=== PATIENT | male | born 1950 | race Caucasian/White ===

== ENCOUNTER 2021-11-30 15:34 | Emergency (ER) | payer MEDICARE, SELFPAY ==
--- NOTE | 2021-11-30 15:45 | ED.URI ---
HPI - URI/Sore Throat General Chief Complaint: Upper Respiratory Infection Stated Complaint: Congestion, ear pain, sore throat, cough Time Seen by Provider: 11/30/21 15:45 Source: patient and RN notes reviewed History of Present Illness HPI Narrative: Patient is 71-year-old male who presents the urgent care with complaints of congestion, rhinorrhea, bilateral ear pain and postnasal drainage. Patient states that he has been taking Benadryl the last 3 nights and it seemed to really help with his symptoms . Patient denies of any fevers, nausea, vomiting, shortness of breath or chest pain. Patient states his symptoms started last Saturday and seems to be getting better however his wanted him evaluated. Patient denies of any ill contacts. No other acute complaints. No acute distress noted. Patient aware of the plan of care. Some parts of this dictation were generated by voice recognition software and may contain typographical and/or grammatical inaccuracies. Related Data Home Medications Medication Instructions Recorded Confirmed amlodipine 11/30/21 benazepril 11/30/21 clopidogrel 11/30/21 metoprolol succinate PO 11/30/21 Allergies Allergy/AdvReac Type Severity Reaction Status Date / Time Sulfa (Sulfonamide Allergy Unknown Hives Unverified 11/30/21 15:45 Antibiotics) Review of Systems Review of Systems: CONSTITUTIONAL: Denies fever, chills, or sweats. EYES: Denies visual changes, redness, or discharge. ENT: Reports of sinus congestion, postnasal drainage, rhinorrhea and bilateral otalgia CARDIOVASCULAR: Denies chest pain, palpitations, or edema. RESPIRATORY: Reports of dry cough without dyspnea GASTROINTESTINAL: Denies abdominal pain, nausea, vomiting, or diarrhea. GENITOURINARY: Denies dysuria or hematuria. SKIN: Denies rash or itching. MUSCULOSKELETAL: Denies back pain, joint pain, or myalgia. NEUROLOGIC: Denies headache, numbness, or weakness. All other systems reviewed are negative, except as documented in HPI. PMFSH Comments At the time of my signature, I reviewed and agree with the nursing past medical, surgical, social, and family history. There is no relevant family history pertinent to the patient complaint. Exam Narrative: GENERAL: This is a well-nourished, well-developed patient, in no apparent distress. HEAD: normocephalic, atraumatic. EYES: PERRL. Sclera clear/white. Vision is grossly intact. Mild bilateral subconjunctival hematoma with mild injected conjunctiva EARS: External ears normal, auditory canals clear and without drainage, TMs normal without perforation. Hearing grossly intact. NOSE: External nose normal with no obvious nasal discharge, nares without redness, clear rhinorrhea. THROAT: Mucous membranes moist, mild erythema to the posterior oropharynx with moderate postnasal drainage NECK: Neck supple CARDIOVASCULAR: Regular rate and rhythm without murmurs, gallops, or rubs. RESPIRATORY: Clear to auscultation. Breath sounds equal bilaterally. No wheezes, rales, or rhonchi. SKIN: warm, intact with no suspicious lesions or rash, good texture and turgor. NEURO: awake, alert, and oriented to person, place and time. There were no obvious focal neurologic abnormalities. EXTREMITIES: No clubbing, cyanosis, or edema. Course Course Level of Care: Express Care Visit Vital Signs Vital signs: Vital Signs Temperature 98.2 F 11/30/21 15:47 Pulse Rate 87 11/30/21 15:47 Respiratory Rate 20 11/30/21 15:47 Blood Pressure 134/70 11/30/21 15:47 Pulse Oximetry 98 11/30/21 15:47 Temperature 98.2 F 11/30/21 15:47 Pulse Rate 87 11/30/21 15:47 Respiratory Rate 20 11/30/21 15:47 Blood Pressure 134/70 11/30/21 15:47 Pulse Oximetry 98 11/30/21 15:47 reviewed MDM - URI/Sore Throat MDM Narrative Medical decision making narrative: Advised the patient to take a daily antihistamine without pseudoephedrine such as Claritin or Zyrtec. Use Benadryl and Flonase prior to b
[2021-11-30 15:47] VITALS: BP 134/70; PULSE 87; RESP 20; TEMP 36.8; O2SAT 98
== END 2021-11-30 16:15 | disposition home or self-care (01) ==
PROVIDERS: Emergency Provider Nurse Practitioner Family
DX: R05.9 Cough, unspecified (principal); J32.9 Chronic sinusitis, unspecified; I25.10 Atherosclerotic heart disease of native coronary artery without angina pectoris; I10 Essential (primary) hypertension
CPT/HCPCS: 99213; G0463

== ENCOUNTER 2021-12-23 21:48 | Inpatient (IN) | payer MEDICARE, SELFPAY ==
--- NOTE | ~2021-12-23 | US_ITS ---
US right upper quadrant DATE: 12/24/2021 07:49 INDICATION: Gastrointestinal bleeding. Hyperammonemia TECHNIQUE: Real-time imaging of liver, pancreas, gallbladder COMPARISON: 04/09/2019 right upper quadrant abdominal ultrasound FINDINGS: There is hepatic steatosis. There is normal hepatopedal portal venous flow direction. No he patic space-occupying mass lesion is demonstrated. The common bile duct measures 3.3 mm, normal. The gallbladder is not very distended. No gallstones or gallbladder wall thickening are evident. Nega tive sonographic Ovalle's sign. The pancreas is obscured. IMPRESSION: The pancreas is obscured, not evaluated Hepatic steatosis Reviewed, dictated and finalized at [facility]. Reviewed, dictated and finalized at [facility].
--- NOTE | ~2021-12-23 | XR_ITS ---
XR abdomen NG/feed tube insert DATE: 12/23/2021 22:54 INDICATION: Gastrointestinal bleed TECHNIQUE: Portable supine AP view on 12/23/2021 2249 hours, limited to upper abdomen COMPARISON: None FINDINGS: NG tube is present in the stomach Included bowel gas pattern is nonspecific. Included psoas shadows are intact. Minimal infiltrate or atelectasis in the medial left lower lung, left lower lobe. IMPRESSION: NG tube in stomach Reviewed, dictated and finalized at [facility] Reviewed, dictated and finalized at [facility]. IMPRESSION: NG tube in stomach
[2021-12-23 21:54] VITALS: BP 100/69; PULSE 91; RESP 19; TEMP 35.3; O2SAT 98
[2021-12-23] MEDS: SODIUM CHLORIDE 0.9% IV 1,000 ML 999 ML IV CONT ×2 (22:27→22:30)
[2021-12-23] MEDS: ONDANSETRON INJ 4 MG/2 ML VIAL IV PUSH (22:27)
[2021-12-23] MEDS: PANTOPRAZOLE SODIUM IV 40 MG VIAL 80 MG IV PUSH (22:27)
--- NOTE | 2021-12-23 22:27 | ED.GIBLEED ---
HPI - GI Bleed General Chief complaint: GI Bleed Stated complaint: vomiting blood Time Seen by Provider: 12/23/21 22:02 History of Present Illness HPI Narrative: 71-year-old male presents here with several episodes of coffee-ground emesis at home, this is never happened in the past, he is endorsing some nausea, see that his stools have been somewhat dark recently also, no history of ulcers but his states that he does get a little queasy sometimes after eating. No history of any liver disease or heavy alcohol use. Feeling somewhat lightheaded. MD complaint: coffee ground emesis Related Data Home Medications Medication Instructions Recorded Confirmed amlodipine 5 mg PO DAILY 11/30/21 12/24/21 aspirin [[facility] Aspirin] 81 mg PO DAILY 11/30/21 12/24/21 benazepril 10 mg PO DAILY 11/30/21 12/24/21 clopidogrel 75 mg PO DAILY 11/30/21 12/24/21 metoprolol succinate 25 mg PO DAILY 11/30/21 12/24/21 multivitamin [One A Day Vitamin] 1 tablet PO DAILY 11/30/21 12/24/21 Allergies Allergy/AdvReac Type Severity Reaction Status Date / Time Sulfa (Sulfonamide Allergy Unknown Hives Verified 12/23/21 21:58 Antibiotics) Review of Systems Review of Systems: CONST: Feeling weak and tired HEENT: No sore throat C/V: No chest pain RESP: No cough GI: Reports abdominal pain, nausea, vomiting coffee ground emesis : No dysuria. M/S: No joint pain. SKIN: No rash. 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 They have 2 children. He used to smoke half a pack per day for approximately 20 years but quit smoking over 30 years ago. He rarely drinks alcohol and only in small amounts. Denies illicit substance use. Code status: Full code Surrogate decision maker: Smoking packs per day: 0.5 Smoking cigarettes per day: 10.0 Years smoked: 20 Smoking pack-years: 10.00 Smoking status: Former smoker Tobacco type: cigarettes Alcohol intake: current Alcohol use details: 1 drink a year Substance use: never Spiritual care concerns: No Exam Narrative: EXAMINATION OF ORGAN SYSTEMS/BODY AREAS: Constitutional: Vital signs per nursing GENERAL: Appears quite pale and tired HEAD: Normal with no signs of head trauma. EYES: EOMI, conjunctiva normal ENT: Hearing grossly intact LUNGS: Nonlabored breathing. HEART: [Regular rate and rhythm] ABD: [Soft], [nontender to palpation] EXT: Normal range of motion SKIN: Pale NEURO: [Alert and oriented x 3. No gross focal sensory or strength deficits.] PSYCH: Normal affect Course Course Emergency Course: 71-year-old male presents here with several episodes of coffee-ground emesis at home, vital signs soft blood pressures, exam shows palpation who looks uncomfortable with soft nontender abdomen, concern for upper GI bleed from PUD, less likely varices without history of liver disease or alcohol use, 2 large-bore IVs immediately placed, IV fluid started, Zofran and Protonix given, at this time the patient suddenly started having another episode of emesis with around 200 cc of hematemesis, I did call gastroenterol
[2021-12-23] MEDS: METOCLOPRAMIDE HCL INJ 10 MG/2 ML VIAL IV PUSH (22:51)
[2021-12-23 23:36] LABS: Basophils Percent Auto 0.3 % (0.2-1.2); Eosinophils Absolute Auto 0.1 K/mm3 (0-0.3); Eosinophils Percent Auto 0.6 % (0-4.4); Hematocrit 31.9 % (42.0-52.0); Hemoglobin 10.4 g/dL (14.0-18.0); Immature Granulocyte Absolute 0.05 K/mm3 (0.00-0.031); Immature Granulocyte Percent A 0.5 % (0-0.5); Lymphocytes Absolute Auto 0.65 K/mm3 (0.9-3.2); Mean Corpuscular HGB Conc 32.6 g/dl (32-36); Mean Corpuscular Hemoglobin 32.1 pg (26-34); Mean Corpuscular Volume 98.5 fl (80-100); Mean Platelet Volume 10.3 fl (7.4-10.4); Monocytes Absolute Auto 0.5 K/mm3 (0.1-0.6); Monocytes Percent Auto 4.8 % (2.6-8.5); Neutrophils Absolute Auto 9.4 K/mm3 (1.3-6.7); Neutrophils Percent Auto 87.8 % (45.5-73.1); Platelet Count Result 183 k/mm3 (150-375); Red Blood Count 3.24 M/mm3 (4.6-6.20); Red Cell Distribution Width 13.2 % (11.5-14.5); White Blood Count 10.8 K/mm3 (4.5-10.0)
[2021-12-23 23:47] LABS: Alanine Aminotransferase 25 U/L (6-50); Albumin Level 2.7 g/dL (3.5-5.1); Alkaline Phosphatase 45 U/L (38-126); Anion Gap 4 mmol/L (8-16); Aspartate Amino Transferase 27 U/L (17-59); Bilirubin,Total 0.5 mg/dL (0.2-1.3); Blood Urea Nitrogen 34 mg/dL (9-20); Calcium 7.4 mg/dL (8.4-10.2); Carbon Dioxide 22 mmol/L (22-30); Chloride 111 mmol/L (98-107); Estimated CRCL calculation 76 ml/min; Estimated Glomerular Filt Rate > 60; Glucose 183 mg/dL (65-110); Lipase 112 U/L (23-300); Magnesium 1.9 mg/dL (1.6-2.3); Potassium 4.6 mmol/L (3.4-5.0); Sodium 137 mmol/L (137-145)
[2021-12-23 23:48] LABS: Ammonia 98 umol/L (9-30)
[2021-12-23 23:51] VITALS: BP 114/57; PULSE 98; RESP 18; O2SAT 99
[2021-12-23 23:51] LABS: INR 1.2; Partial Thromboplastin Time 22.1 SECONDS (22.3-36.8); Prothrombin Time 14.7 Seconds (11.1-14.7)
--- NOTE | 2021-12-23 23:59 | PC.NURSE ---
Patient care report given to DEIRDRE Mireles and all care turned over at this time.
[2021-12-24] VITALS (33 sets, daily range): BP systolic 92–145; BP diastolic 40–88; PULSE 79–149; RESP 18–32; TEMP 35.7–37.1; O2SAT 94–100; BMI 38.3
--- NOTE | 2021-12-24 02:34 | PC.NURSE ---
This patient, Felix Izquierdo, was admitted to IMU Room 201-01 at 0230 on 12/24/21. Patient oriented to hospital policies and general routines including ID bracelet, bed and alarms, visiting hours, pain management, procedures, bathroom and other care routines, personal items, smoking policy, room service/diet, and visiting hours. Information on how to activate the Rapid Response Team has been discussed. Patient is encouraged to report perceived risks to care and to ask questions if they do not understand what they are told or what they should do.
[2021-12-24 03:33] LABS: Hematocrit 30.8 % (42.0-52.0)
--- NOTE | 2021-12-24 04:39 | PM.IMHP ---
H&P: HPI History of Present Illness Date/Time: 12/24/21 04:39 Chief Complaint: Vomiting blood Narrative: 71-year-old male with past medical history of coronary artery disease, essential hypertension and obesity who presented to the ER via EMS due to a matted emesis. The patient reports that he had sudden onset of emesis of coffee-ground emesis x4 at home. He denies prior episodes of GI bleed. He is on Plavix, baby aspirin and naproxen at home. He has been taking naproxen 500 mg 2 or 3 times a day since December 11 due to hip bursitis. He last took naproxen 3 days ago. He denies any heartburn or epigastric pain. In the ER he had 1 large emesis consisting of dark red blood. He had an NG-tube placed subsequently with another 200 mL of bloody material. He denies any chest pain or shortness of breath. He has not had any cough or congestion. He has been having dark stools throughout the day on the day of presentation. He denies any history of prior EGDs or black stools. Just prior to my evaluation a rapid response was called. The nursing staff had walk patient to the bathroom at which time he was steady on his feet. The patient had a large black bowel movement while on the toilet and had a vasovagal event and when unresponsive. The patient was markedly diaphoretic and tachycardic with heart rates as high as 150. The patient came to and still felt lightheaded. Blood pressure checked at that time was 95/59. Once the patient was returned to bed the patient's blood pressure had improved to 1 30s over 80s. His heart rate still remained elevated at 130. Decision was made to give the patient 1 unit of packed red blood cells. The patient had received 2 normal saline boluses in the ER. Review of Systems Review of Systems: 12 systems were reviewed with pertinent positives and negatives per HPI. Except as documented in the HPI, all other systems were reviewed and are negative. 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 They have 2 children. He used to smoke half a pack per day for approximately 20 years but quit smoking over 30 years ago. He rarely drinks alcohol and only in small amounts. Denies illicit substance use. Code status: Full code Surrogate decision maker: Smoking packs per day: 0.5 Smoking cigarettes per day: 10.0 Years smoked: 20 Smoking pack-years: 10.00 Smoking status: Former smoker Tobacco type: cigarettes Alcohol intake: current Alcohol use details: 1 drink a year Substance use: never Spiritual care concerns: No Meds Home Medications and Allergies Home Medications Medication Instructions Recorded Confirmed Type amlodipine 5 mg PO DAILY 11/30/21 12/24/21 History aspirin [[facility] Aspirin] 81 mg PO DAILY 11/30/21 12/24/21 History benazepril 10 mg PO DAILY 11/30/21 12/24/21 History clopidogrel 75 mg PO DAILY 11/30/21 12/24/21 History metoprolol succinate 25 mg PO DAILY 11/30/21 12/24/21 History multivitamin [One A Day Vitamin] 1 tablet PO DAILY 11/30/21 12/24/21 History Allergies Allergy/AdvReac Type Severity Reaction Status Date / Time Sulfa (Sulfonamide Allergy Unknown Hives V
--- NOTE | 2021-12-24 05:12 | PC.NURSE ---
Patient requested to walk to the bathroom to have a bowel movement. He was steady on his feet with one assist. Once on the commode and passing stool and flatus, patient had snoring respirations and collapsed due to a possible vasovagal reaction. Rapid Response was called. Dr. Murphy here to see patient. We were able to return the patient to bed via the Eloise Steady.
--- NOTE | 2021-12-24 05:16 | ECG_ITS ---
Measurements Intervals [place] Rate: 118 P: 28 CA: 165 QRS: 23 QRSD: 81 T: 57 QT: 316 QTc: 443 Interpretive Statements SINUS TACHYCARDIA BORDERLINE ST-T WAVE ABNORMALITY- LAT/HIGH LAT LEADS BASELINE ARTIFACT- I, II, III, AVR, AVL, AVF ABNORMAL ECG Electronically Signed On 12-28-2021 10:37:59 CDT by Basim Ignacio D.O.
[2021-12-24 05:23] LABS: Glucose Point of Care 273 mg/dl (65-105)
[2021-12-24] MEDS: ONDANSETRON INJ 4 MG/2 ML VIAL IV PUSH (05:23)
[2021-12-24] MEDS: SODIUM CHLORIDE 0.9% IV 250 ML 30 ML IV CONT (05:26)
[2021-12-24] MEDS: TUBING, BLOOD PLUM PUMP TUBING 1 EACH XX (05:30)
--- NOTE | 2021-12-24 06:02 | PC.NURSE ---
12/24/[address] Block notified regarding the patients vasovagal episode. He will add him on today for an EGD. Advised of blood transfusion.
--- NOTE | 2021-12-24 08:06 | WPDGICN ---
Assessment and Plan Assessment and plan (1) Hematemesis: Code(s): K92.0 - Hematemesis Status: Acute Assessment and Plan: will proceed with urgent EGD- probably ulcer but will assess for other causes of acute GIB cross and type, transfuse if hb drops on iv protonix more recommendations after egd (2) Anemia due to blood loss, acute: Code(s): D62 - Acute posthemorrhagic anemia Status: Acute Assessment and Plan: continue to monitor and transfuse as needed (3) Melena: Code(s): K92.1 - Melena Status: Acute (4) Vasovagal syncope: Code(s): R55 - Syncope and collapse Status: Acute Assessment and Plan: fluids, on tele bed continue medical support (5) Coronary artery disease: Code(s): I25.10 - Atherosclerotic heart disease of [place] coronary artery without angina pectoris Status: Inactive Assessment and Plan: hold plavix and asa for now GI Consult Note Consult date/time: 12/24/21 08:06 Reason for consult: hematemesis HPI: Felix Izquierdo is a 71 year old male with history of coronary artery disease and baby aspirin and plavix, essential hypertension who presented to the ER via EMS due new onset of hematemesis. He had sudden onset of coffee-ground emesis x4 at home and also noted melena, denies previous history of GIB, he has been taking naproxen last few days because hip bursitis. He has GERD for which uses peptobismol as needed, never had EGD. On arrival to the ER had 1 large emesis of dark red blood and a NG-tube placed. Hb 10, BUN 34, normal creatinine, liver enzymes normal and after was admitted had a syncopal episode, rapid response was called and found to be tachycardic and vasovagal. Review of Systems Constitutional: Constitutional: Reports weakness Eyes: Eyes: Denies blurry vision ENT: Reports Normal hearing present Cardiovascular: Cardiovascular: Denies chest pain Respiratory: Respiratory: Denies cough Gastrointestinal: Gastrointestinal: Reports melena, Reports nausea, Reports vomiting and Reports hematemesis Genitourinary: Genitourinary: Denies dysuria Musculoskeletal: Musculoskeletal: Denies myalgias Integumentary/Breasts: Skin/Breast: Denies dry skin Neurologic: Denies confusion Psychiatric: Psychiatric: Denies behavioral changes [facility] Past Medical History Medical History (Updated 12/24/21 @ 09:03 by Gonzalez Selby MD) Coronary artery disease Hematemesis Hypertension Melena Surgical History Surgical History (Updated 12/24/21 @ 06:50 by Jesusita Murphy DO) H/O knee surgery History of cardiac catheterization (~2006) He reports that he had a vessel that was not amendable to intervention and was managed conservatively with Plavix and aspirin he does not follow with a manager membership History of lumbar surgery History of nasal septoplasty History of tonsillectomy History of total right knee replacement Family History Family History Father Heart attack Mother Hypertension Social History Social History (Updated 12/24/21 @ 06:53 by Jesusita Murphy DO) Social History: He lives at home with his of 48 years. They have 2 children. He used to smoke half a pack per day for approximately 20 years but quit smoking over 30 years ago. He rarely drinks alcohol and only in small amounts. Denies illicit substance use. Code status: Full code Surrogate decision maker: Smoking packs per day: 0.5 Smoking cigarettes per day: 10.0 Years smoked: 20 Smoking pack-years: 10.00 Smoking status: Former smoker Tobacco type: cigarettes Alcohol intake: current Alcohol use details: 1 drink a year Substance use: never Spiritual care concerns: No Meds Home Medications and Allergies Home Medications Medication Instructions Recorded Confirmed Type amlodipine 5 mg PO DAILY 11/30/21 12/24/21 History aspir
--- NOTE | 2021-12-24 08:50 | PC.NURSE ---
Patient left floor with gi staff for egd. No c/o chest pain or shortness of breath. No distress noted.
--- NOTE | 2021-12-24 09:03 | WPDANESEPPF ---
Anes - Initial Pre Proc Eval Procedure: Operation Date: 12/24/21 10:45 Proposed Procedures p Esophagogastroduodenoscopy - Gonzalez Selby MD Date/Time: 12/24/21 09:03 Surgeon: Fiona Ledezma DO Pre Op Diagnosis: Upper GI bleed Pre Op Diagnosis: ugib Patient Data Age: 71 Gender: M Height: 1.83 m Weight: 128.2 kg Last Vital Signs Temp 35.9 C L 12/24/21 09:00 Pulse 134 H 12/24/21 09:00 Resp 20 12/24/21 09:00 BP 116/63 12/24/21 09:00 Pulse Ox 98 12/24/21 09:00 Allergies Allergy/AdvReac Type Severity Reaction Status Date / Time Sulfa (Sulfonamide Allergy Unknown Hives Verified 12/24/21 08:55 Antibiotics) Home Medications Medication Instructions Recorded Confirmed Type amlodipine 5 mg PO DAILY 11/30/21 12/24/21 History aspirin [[facility] Aspirin] 81 mg PO DAILY 11/30/21 12/24/21 History benazepril 10 mg PO DAILY 11/30/21 12/24/21 History clopidogrel 75 mg PO DAILY 11/30/21 12/24/21 History metoprolol succinate 25 mg PO DAILY 11/30/21 12/24/21 History multivitamin [One A Day Vitamin] 1 tablet PO DAILY 11/30/21 12/24/21 History Laboratory Tests 12/23/21 12/23/21 12/23/21 23:23 23:23 23:23 WBC 10.8 K/mm3 H K/mm3 (4.5-10.0) RBC 3.24 M/mm3 L M/mm3 (4.6-6.20) Hgb 10.4 g/dL L g/dL (14.0-18.0) Hct 31.9 % L % (42.0-52.0) MCV 98.5 fl fl (80-100) MCH 32.1 pg pg (26-34) MCHC 32.6 g/dl g/dl (32-36) RDW 13.2 % % (11.5-14.5) Plt Count 183 k/mm3 k/mm3 (150-375) MPV 10.3 fl fl (7.4-10.4) Immature Gran % (Auto) 0.5 % % (0-0.5) Neut % (Auto) 87.8 % H % (45.5-73.1) Lymph % (Auto) 6.0 % L % (18.3-44.2) Morton % (Auto) 4.8 % % (2.6-8.5) Eos % (Auto) 0.6 % % (0-4.4) Baso % (Auto) 0.3 % % (0.2-1.2) Lymph # (Auto) 0.65 K/mm3 L K/mm3 (0.9-3.2) Morton # (Auto) 0.5 K/mm3 K/mm3 (0.1-0.6) Eos # (Auto) 0.1 K/mm3 K/mm3 (0-0.3) Baso # (Auto) 0.0 K/mm3 K/mm3 (0.0-0.1) Abs Immat Gran (auto) 0.05 K/mm3 H K/mm3 (0.00-0.031) Absolute Neuts (auto) 9.4 K/mm3 H K/mm3 (1.3-6.7) Absolute Nucleated RBC 0.0 K/mm3 K/mm3 (0.0-0.012) Nucleated RBC % 0.0 % % (0.0-0.2) PT 14.7 Seconds Seconds (11.1-14.7) INR 1.2 APTT 22.1 SECONDS L SECONDS (22.3-36.8) Sodium 137 mmol/L mmol/L (137-145) Potassium 4.6 mmol/L mmol/L (3.4-5.0) Chloride 111 mmol/L H mmol/L (98-107) Carbon Dioxide 22 mmol/L mmol/L (22-30) Anion Gap 4 mmol/L L mmol/L (8-16) BUN 34 mg/dL H mg/dL (9-20) Creatinine 1.10 mg/dL mg/dL (0.7-1.3) Estim Creat Clear Calc 76 ml/min ml/min Estimated GFR > 60 (59 - ) Glucose 183 mg/dL H mg/dL (65-110) POC Capillary Glucose Calcium 7.4 mg/dL L mg/dL (8.4-10.2) Magnesium 1.9 mg/dL mg/dL (1.6-2.3) Total Bilirubin 0.5 mg/dL mg/dL (0.2-1.3) AST 27 U/L U/L (17-59) ALT 25 U/L U/L (6-50) Alkaline Phosphatase 45 U/L U/L (38-126) Ammonia Total Protein 5.0 g/dL L g/dL (6.3-8.2) Albumin 2.7 g/dL L g/dL (3.5-5.1) Lipase 112 U/L U/L (23-300) Blood Type Antibody Screen Crossmatch 12/23/21 12/24/21 12/24/21 23:23 00:19 02:57 WBC RBC Hgb Cancelled Hct Cancelled MCV MCH MCHC RDW Plt Count MPV Immature Gran % (Auto) Neut % (Auto) Lymph % (Auto) Morton % (Auto) Eos % (Auto) Baso % (Auto) Lymph # (Auto) Morton # (Auto)
[2021-12-24] MEDS: LACTATED RINGERS 1,000 ML 150 ML IV CONT (09:07)
[2021-12-24] MEDS: EPINEPHrine INJ 1 MG/10 ML SYRINGE XX (09:31)
--- NOTE | 2021-12-24 11:07 | PC.NURSE ---
Patient returned to floor with gi staff. No complaints of shortness of breath, chest pain, or nausea.
[2021-12-24 12:03] LABS: Hematocrit 30.1 % (42.0-52.0); Hemoglobin 9.8 g/dL (14.0-18.0)
[2021-12-24] MEDS: PANTOPRAZOLE SODIUM IV 40 MG VIAL IV PUSH ×2 (14:02→20:22)
[2021-12-24] MEDS: METOPROLOL TARTRATE INJ 5 MG/5 ML VIAL IV PUSH (15:06)
[2021-12-24 16:01] LABS: Hematocrit 27.8 % (42.0-52.0); Hemoglobin 9.1 g/dL (14.0-18.0)
[2021-12-24] MEDS: METOPROLOL SUCCINATE EXT REL 25 MG TABCR PO (20:22)
[2021-12-24 22:32] LABS: Hematocrit 24.4 % (42.0-52.0); Hemoglobin 8.2 g/dL (14.0-18.0)
[2021-12-25] VITALS (16 sets, daily range): BP systolic 107–142; BP diastolic 52–72; PULSE 66–105; RESP 16–22; TEMP 35.9–37.2; O2SAT 98–100; BMI 38.2
[2021-12-25 04:53] LABS: Hematocrit 22.9 % (42.0-52.0); Hemoglobin 7.7 g/dL (14.0-18.0)
--- NOTE | 2021-12-25 07:57 | WPDANESPN ---
Anes - Prog Note Post-Op Date/Time: 12/25/21 07:57 Cardiovascular status: normal Respiratory status: normal Airway patency: baseline Mental status: baseline Post-Op hydration status: normal Vital Signs: Last Vital Signs Temp 37.2 C 12/25/21 03:42 Pulse 66 12/25/21 06:00 Resp 22 H 12/25/21 03:42 BP 110/52 L 12/25/21 03:42 Pulse Ox 100 12/25/21 04:00 Pain Score (VAS): 0 I/O: Intake & Output 12/24/21 12/24/21 12/25/21 15:59 23:59 07:59 Intake Total 770 850 600 Output Total 631 100 6815 Balance 170 0 -550 Laboratory Tests 12/25/21 04:26 12/23/21 23:23 12/24/21 12/24/21 12/24/21 00:19 11:58 15:56 Hgb 9.8 L 9.1 L Hct 30.1 L 27.8 L Crossmatch See Detail 12/24/21 12/25/21 22:27 04:26 Hgb 8.2 L 7.7 L Hct 24.4 L 22.9 L Crossmatch Post-procedural complaints: none Patient Feedback: Patient satisfied with anesthetic care.
[2021-12-25 08:31] LABS: Alanine Aminotransferase 21 U/L (6-50); Albumin Level 2.8 g/dL (3.5-5.1); Alkaline Phosphatase 34 U/L (38-126); Anion Gap 5 mmol/L (8-16); Aspartate Amino Transferase 24 U/L (17-59); Bilirubin,Total 0.5 mg/dL (0.2-1.3); Blood Urea Nitrogen 42 mg/dL (9-20); Calcium 8.1 mg/dL (8.4-10.2); Carbon Dioxide 21 mmol/L (22-30); Chloride 111 mmol/L (98-107); Estimated CRCL calculation 78 ml/min; Estimated Glomerular Filt Rate > 60; Glucose 135 mg/dL (65-110); Potassium 4.1 mmol/L (3.4-5.0); Sodium 137 mmol/L (137-145)
[2021-12-25 08:35] LABS: Basophils Percent Auto 0.2 % (0.2-1.2); Eosinophils Percent Auto 0.3 % (0-4.4); Hematocrit 24.2 % (42.0-52.0); Hemoglobin 7.6 g/dL (14.0-18.0); Immature Granulocyte Absolute 0.07 K/mm3 (0.00-0.031); Immature Granulocyte Percent A 0.6 % (0-0.5); Mean Corpuscular HGB Conc 31.4 g/dl (32-36); Mean Corpuscular Hemoglobin 31.9 pg (26-34); Mean Corpuscular Volume 101.7 fl (80-100); Mean Platelet Volume 10.7 fl (7.4-10.4); Monocytes Absolute Auto 0.7 K/mm3 (0.1-0.6); Monocytes Percent Auto 5.8 % (2.6-8.5); Neutrophils Absolute Auto 10.4 K/mm3 (1.3-6.7); Neutrophils Percent Auto 82.1 % (45.5-73.1); Platelet Count Result 159 k/mm3 (150-375); Red Blood Count 2.38 M/mm3 (4.6-6.20); Red Cell Distribution Width 13.9 % (11.5-14.5); White Blood Count 12.7 K/mm3 (4.5-10.0)
[2021-12-25] MEDS: MULTIVITAMINS THERAPEUTIC TAB (*BKC) 1 TABLET PO (08:42)
[2021-12-25] MEDS: PANTOPRAZOLE SODIUM IV 40 MG VIAL IV PUSH ×2 (08:42→20:39)
--- NOTE | 2021-12-25 12:24 | PM.IMPN ---
Progress Note: A&P Assessment and Plan (1) Upper GI hemorrhage: Code(s): K92.2 - Gastrointestinal hemorrhage, unspecified Status: Acute Assessment and Plan: Hemoglobin stable between 7 and 8, will transfuse if less than 7, continue checking q.6 hours, is stable can discharge tomorrow Appreciate GI consultation, continue Protonix on an outpatient basis, will likely need repeat EGD in the future, follow-up closely with outpatient GI (2) Anemia due to blood loss, acute: Code(s): D62 - Acute posthemorrhagic anemia Status: Acute (3) Vasovagal syncope: Code(s): R55 - Syncope and collapse Status: Acute Assessment and Plan: Likely secondary to above Subjective Date/time seen: 12/25/21 12:24 Patient resting comfortably without any complaints. Eager to get up and moving and go home. No chest pain or shortness of breath. No nausea vomiting diarrhea. He is still having some melena. Review of Systems Review of Systems: All systems reviewed & are unremarkable except as noted in HPI and below Exam Const: General: no acute distress HENMT: Mouth: Yes moist mucous membranes Eyes: General: appearance normal, both eyes and all related structures Neck: Neck: no JVD Resp: Auscultation: clear to auscultation bilaterally Cardio: Rate: regular rate Rhythm: regular rhythm GI: Inspection: non-distended GI Palp: Yes Soft to palpation and No Tenderness to palpation present (GI) Psych: Mental Status: mental status grossly normal Objective Data Vital Signs Vital Signs: Vital Signs - 24 hr 12/24/21 14:00 12/24/21 15:06 12/24/21 16:00 Temperature 98.4 F Pulse Rate 130 H 125 H 79 Respiratory Rate 28 H Blood Pressure 112/63 Pulse Oximetry 99 12/24/21 18:00 12/24/21 20:00 12/24/21 20:22 Temperature 98.8 F Pulse Rate 120 H 116 H 126 H Respiratory Rate 22 H Blood Pressure 145/64 H Pulse Oximetry 99 12/24/21 22:00 12/24/21 23:31 12/25/21 00:00 Temperature 97.9 F Pulse Rate 111 H 101 H 103 H Respiratory Rate 22 H Blood Pressure 120/73 Pulse Oximetry 100 100 12/25/21 02:00 12/25/21 03:42 12/25/21 04:00 Temperature 99 F Pulse Rate 74 94 73 Respiratory Rate 22 H Blood Pressure 110/52 L Pulse Oximetry 100 100 12/25/21 06:00 12/25/21 08:00 12/25/21 08:24 Temperature 97.6 F Pulse Rate 66 78 73 Respiratory Rate 20 Blood Pressure 107/56 L Pulse Oximetry 99 12/25/21 09:00 12/25/21 10:00 Temperature Pulse Rate 72 93 Respiratory Rate Blood Pressure Pulse Oximetry Intake/Output Intake/Output: Intake & Output 12/22/21 12/23/21 12/24/21 12/25/21 23:59 23:59 23:59 23:59 Intake Total 1999 1620 840 Output Total 0 2050 Balance 1999 -213 -7839 Meds/Results Medications: Active Medications Generic Name Dose Route Start Last Admin Trade Name Freq PRN Reason Stop Dose Admin Metoprolol Succinate 25 mg 12/24/21 19:00 12/25/21 09:00 Metoprolol Succinate Ext Rel 25 Mg Tabcr PO Not Given DAILY BOBBY Multivitamins Therapeutic 1 tablet 12/25/21 09:00 12/25/21 08:42 Multivitamins Therapeutic Tab (*Bkc) PO 1 tablet DAILY BOBBY Administration Ondansetron HCl 4 mg 12/24/21 04:40 12/24/21 05:23 Ondansetron Inj 4 Mg/2 Ml Vial IV PUSH 4 mg Q4H PRN Administration Nausea And Vomiting Pantoprazole Sodium 40 mg 12/24/21 09:00 12/25/21 08:42 Pantoprazole Sodium Iv 40 Mg Vial IV PUSH 40 mg Q12HR BOBBY Administration Radiology Results: ITS Impressions Abdomen X-Ray 12/24/21 07:48 IMPRESSION: NG tube in stomach Upper Quadrant Ultrasound 12/24/21 07:51 IMPRESSION: The pancreas is obscured, not evaluated Hepatic steatosis Labs Labs: Laboratory Results - last 24 hr 12/24/21 12/24/21 12/25/21 15:56 22:27 04:26 WBC RBC Hgb 9.1 L 8.2 L 7.7 L Hct 27.8 L 24.4 L 22.9 L MCV MCH MCHC RDW Plt Count
--- NOTE | 2021-12-25 13:42 | PC.NURSE ---
This patient, Felix Izquierdo, was transferred to [[facility]] on 12/25/21 at 1342. Personal belongings sent with patient. Report given to [ Iwona]. Appropriate documentation sent with patient.
--- NOTE | 2021-12-25 14:48 | WPDGIPROGNO ---
Progress Note: A&P Assessment and Plan (1) Bella-Borja tear: Code(s): K22.6 - Gastro-esophageal laceration-hemorrhage syndrome Status: Acute Assessment and Plan: caused of bleeding continue with protonix daily hold plavix for 2 weeks expect to see melena for 1-2 days trend h/h tolerating diet and possible home tomorrow (2) Anemia due to blood loss, acute: Code(s): D62 - Acute posthemorrhagic anemia Status: Acute Assessment and Plan: monitor (3) Melena: Code(s): K92.1 - Melena Status: Acute Assessment and Plan: due to MWT (4) Hematemesis: Code(s): K92.0 - Hematemesis Status: Acute (5) Vasovagal syncope: Code(s): R55 - Syncope and collapse Status: Acute Assessment and Plan: resolved (6) Coronary artery disease: Code(s): I25.10 - Atherosclerotic heart disease of [place] coronary artery without angina pectoris Status: Acute Subjective Date/time seen: 12/25/21 14:48 Interval history: feeling much better, EGD yesterday showed active bleeding from MWT treated with epi and clips. Denies any more bleeding Review of Systems Review of Systems: All systems reviewed & are unremarkable except as noted in HPI and below Exam Const: General: comfortable and no acute distress HENMT: General nose exam: Normal nares present Eyes: General: appearance normal, both eyes and all related structures Neck: Neck: no JVD Resp: Auscultation: clear to auscultation bilaterally Cardio: Rate: regular rate Rhythm: regular rhythm GI: Inspection: non-distended GI Palp: Yes Soft to palpation Skin: General skin exam: normal color Neuro: Speech: normal speech Motor exam (neuro): Normal motor muscle tone present throughout Extrem: General: normal to inspection Psych: Mental Status: mental status grossly normal Objective Data Vital Signs Vital Signs: Vital Signs - 24 hr 12/24/21 15:06 12/24/21 16:00 12/24/21 18:00 Temperature 98.4 F Pulse Rate 125 H 79 120 H Respiratory Rate 28 H Blood Pressure 112/63 Pulse Oximetry 99 12/24/21 20:00 12/24/21 20:22 12/24/21 22:00 Temperature 98.8 F Pulse Rate 116 H 126 H 111 H Respiratory Rate 22 H Blood Pressure 145/64 H Pulse Oximetry 99 12/24/21 23:31 12/25/21 00:00 12/25/21 02:00 Temperature 97.9 F Pulse Rate 101 H 103 H 74 Respiratory Rate 22 H Blood Pressure 120/73 Pulse Oximetry 100 100 12/25/21 03:42 12/25/21 04:00 12/25/21 06:00 Temperature 99 F Pulse Rate 94 73 66 Respiratory Rate 22 H Blood Pressure 110/52 L Pulse Oximetry 100 100 12/25/21 08:00 12/25/21 08:24 12/25/21 09:00 Temperature 97.6 F Pulse Rate 78 73 72 Respiratory Rate 20 Blood Pressure 107/56 L Pulse Oximetry 99 12/25/21 10:00 12/25/21 12:07 12/25/21 12:32 Temperature 97.1 F L Pulse Rate 93 92 105 H Respiratory Rate 20 Blood Pressure 142/72 H Pulse Oximetry 100 Intake/Output Intake/Output: Intake & Output 12/22/21 12/23/21 12/24/21 12/25/21 23:59 23:59 23:59 23:59 Intake Total 1999 1620 1320 Output Total 2350 2350 Balance 1999 -692 -4598 Meds/Results Medications: Active Medications Generic Name Dose Route Start Last Admin Trade Name Freq PRN Reason Stop Dose Admin Metoprolol Succinate 25 mg 12/24/21 19:00 12/25/21 09:00 Metoprolol Succinate Ext Rel 25 Mg Tabcr PO Not Given DAILY BOBBY Multivitamins Therapeutic 1 tablet 12/25/21 09:00 12/25/21 08:42 Multivitamins Therapeutic Tab (*Bkc) PO 1 tablet DAILY BOBBY Administration Ondansetron HCl 4 mg 12/24/21 04:40 12/24/21 05:23 Ondansetron Inj 4 Mg/2 Ml Vial IV PUSH 4 mg Q4H PRN Administration Nausea And Vomiting Pantoprazole Sodium 40 mg 12/24/21 09:00 12/25/21 08:42 Pantoprazole Sodium Iv 40 Mg Vial IV PUSH 40 mg Q12HR BOBBY Administration Radiology Results: ITS Impressions Abdomen X-Ray 12/24/21
[2021-12-25 15:53] LABS: Hematocrit 22.1 % (42.0-52.0); Hemoglobin 7.3 g/dL (14.0-18.0)
[2021-12-25 22:27] LABS: Hematocrit 20.9 % (42.0-52.0); Hemoglobin 6.9 g/dL (14.0-18.0)
[2021-12-26] VITALS (8 sets, daily range): BP systolic 116–137; BP diastolic 60–72; PULSE 73–101; RESP 18–20; TEMP 36.4–36.9; O2SAT 98–100
[2021-12-26] MEDS: SODIUM CHLORIDE 0.9% IV 250 ML 30 ML IV CONT (00:16)
[2021-12-26 05:31] LABS: Hematocrit 24.5 % (42.0-52.0); Hemoglobin 8.1 g/dL (14.0-18.0); Mean Corpuscular HGB Conc 33.1 g/dl (32-36); Mean Corpuscular Hemoglobin 32.1 pg (26-34); Mean Corpuscular Volume 97.2 fl (80-100); Mean Platelet Volume 10.7 fl (7.4-10.4); Platelet Count Result 155 k/mm3 (150-375); Red Blood Count 2.52 M/mm3 (4.6-6.20); Red Cell Distribution Width 14.2 % (11.5-14.5); White Blood Count 9.4 K/mm3 (4.5-10.0)
[2021-12-26 05:49] LABS: Anion Gap 7 mmol/L (8-16); Blood Urea Nitrogen 27 mg/dL (9-20); Calcium 7.9 mg/dL (8.4-10.2); Carbon Dioxide 22 mmol/L (22-30); Chloride 108 mmol/L (98-107); Estimated CRCL calculation 78 ml/min; Estimated Glomerular Filt Rate > 60; Glucose 124 mg/dL (65-110); Sodium 137 mmol/L (137-145)
[2021-12-26] MEDS: MULTIVITAMINS THERAPEUTIC TAB (*BKC) 1 TABLET PO (08:02)
[2021-12-26] MEDS: PANTOPRAZOLE SODIUM IV 40 MG VIAL IV PUSH (08:02)
[2021-12-26] MEDS: METOPROLOL SUCCINATE EXT REL 25 MG TABCR PO (08:02)
--- NOTE | 2021-12-26 11:04 | PM.DS ---
DS: Admitting Diagnosis Discharge Date 12/26/21 Admitting Diagnosis GI bleed DS: Discharge Diagnosis Discharge Diagnosis (1) Upper GI hemorrhage: Code(s): K92.2 - Gastrointestinal hemorrhage, unspecified Status: Acute Assessment and Plan: GI was consulted EGD was done patient was found to have Bella-Borja tear treated with no epinephrine injection patient will be discharged on PPI follow-up with GI as outpatient no Plavix for 2 weeks (2) Anemia due to blood loss, acute: Code(s): D62 - Acute posthemorrhagic anemia Status: Acute Assessment and Plan: Secondary to GI bleed as above (3) Vasovagal syncope: Code(s): R55 - Syncope and collapse Status: Acute Assessment and Plan: Most likely multifactorial related to GI bleed and Bella-Borja tear Resolved follow-up with PCP as out patient Consider echo as outpatient DS: Summary Hospital Course Hospital Course: Patient had GI bleed GI was consulted EGD was done was found to have Bella-Borja to follow-up with GI as outpatient hold antiplatelet for 2 weeks avoid NSAID will be discharged on PPI follow-up with GI as below Time Spent with Patient Time attestation: Total time spent providing and/or coordinating discharge services: Exam Narrative: Alert Chest no wheeze crackles Abdomen nontender nondistended CVS S1 + S2 Lower extremity edema DS: Data Data Completed and Pending Labs on day of discharge: Labs from last 24 hours 12/26/21 12/26/21 12/25/21 04:56 04:56 21:56 WBC 9.4 RBC 2.52 L Hgb 8.1 L 6.9 L* Hct 24.5 L 20.9 L* MCV 97.2 MCH 32.1 MCHC 33.1 RDW 14.2 Plt Count 155 MPV 10.7 H Sodium 137 Potassium 4.0 Chloride 108 H Carbon Dioxide 22 Anion Gap 7 L BUN 27 H D Creatinine 1.10 Estim Creat Clear Calc 78 Estimated GFR > 60 Glucose 124 H Calcium 7.9 L Blood Type Antibody Screen Crossmatch 12/25/21 12/24/21 15:23 00:19 WBC RBC Hgb 7.3 L Hct 22.1 L MCV MCH MCHC RDW Plt Count MPV Sodium Potassium Chloride Carbon Dioxide Anion Gap BUN Creatinine Estim Creat Clear Calc Estimated GFR Glucose Calcium Blood Type O Positive Antibody Screen Negative Crossmatch See Detail Discharge Plan Discharge Attending physician on discharge: Gosia Kaur M.A. Consulting providers: Gonzalez Selby Discharging Clinician: Gosia Kaur M.A. Patient Disposition: Home, Self-Care Activity: as tolerated Diet: heart healthy Discharge Instructions: Hold Plavix and Aspirin for 2 weeks. Follow up with GI Dr. Judge in 1 week. Follow up with your PCP / dude wrangler in 1 week. Get labs drawn in 3 days to monitor H & H. Monitor color of stools. Return to the ER for any new or worsening symptoms Patient Instructions: Antibiotic Form, Gastrointestinal Bleeding (DC), Chronic Hypertension (DC) Stand Alone Forms: General Discharge Information Follow-up/Referrals: Chanelle,Oli Perkins MD [Primary Care Provider] - Gonzalez Selby MD [Physician] - Discharge Medications: New pantoprazole 40 mg tablet,delayed release (DR/EC) 40 mg PO BID 56 Days Qty: 112 RF: 0 Continued amlodipine 5 mg tablet 5 mg PO DAILY RF: 0 metoprolol succinate 25 mg tablet extended release 24 hr 25 mg PO DAILY RF: 0 benazepril 10 mg tablet 10 mg PO DAILY RF: 0 multivitamin Tablet 1 tablet PO DAILY RF: 0 Held clopidogrel 75 mg tablet 75 mg PO DAILY RF: 0 Hold Instructions: Hold for 2 weeks follow-up with GI in 1 week to re-evaluate aspirin 81 mg Tablet,Chewable 81 mg PO DAILY RF: 0 Hold Instructions: Hold for 2 weeks follow-up with your dude wrangler in 1 week Follow-up with your GI specialist in 1 week Please call your dude wrangler and GI specialist when to be able to restart your aspirin a
--- NOTE | 2021-12-26 11:49 | WPDGIPROGNO ---
Progress Note: A&P Assessment and Plan (1) Bella-Borja tear: Code(s): K22.6 - Gastro-esophageal laceration-hemorrhage syndrome Status: Acute Assessment and Plan: caused of bleeding continue with protonix daily hold plavix and aspirin 2 weeks post egd hb up after 1 unit prbc he can go home (2) Anemia due to blood loss, acute: Code(s): D62 - Acute posthemorrhagic anemia Status: Acute Assessment and Plan: hb responded to blood transfusion iron supplement (3) Melena: Code(s): K92.1 - Melena Status: Acute Assessment and Plan: due to MWT resolved (4) Hematemesis: Code(s): K92.0 - Hematemesis Status: Acute (5) Vasovagal syncope: Code(s): R55 - Syncope and collapse Status: Acute Assessment and Plan: resolved (6) Coronary artery disease: Code(s): I25.10 - Atherosclerotic heart disease of [place] coronary artery without angina pectoris Status: Acute Subjective Date/time seen: 12/26/21 11:49 Interval history: no more bleeding and doing well, had one unit prbc Review of Systems Review of Systems: All systems reviewed & are unremarkable except as noted in HPI and below Exam Const: General: comfortable and no acute distress HENMT: General nose exam: Normal nares present Eyes: General: appearance normal, both eyes and all related structures Neck: Neck: no JVD Resp: Auscultation: clear to auscultation bilaterally Cardio: Rate: regular rate Rhythm: regular rhythm GI: Inspection: non-distended GI Palp: Yes Soft to palpation Skin: General skin exam: normal color Neuro: Speech: normal speech Motor exam (neuro): Normal motor muscle tone present throughout Extrem: General: normal to inspection Psych: Mental Status: mental status grossly normal Objective Data Vital Signs Vital Signs: Vital Signs - 24 hr 12/25/21 12:07 12/25/21 12:32 12/25/21 16:00 Temperature 97.1 F L 96.6 F L Pulse Rate 92 105 H 96 Respiratory Rate 20 16 Blood Pressure 142/72 H 120/72 Pulse Oximetry 100 99 12/25/21 16:40 12/25/21 17:12 12/25/21 20:00 Temperature 98.6 F Pulse Rate 93 98 Respiratory Rate 18 Blood Pressure 136/69 Pulse Oximetry 98 100 12/25/21 23:58 12/26/21 00:00 12/26/21 00:15 Temperature 98.3 F 98.2 F 98.2 F Pulse Rate 102 H 98 98 Respiratory Rate 18 18 18 Blood Pressure 128/60 116/60 116/60 Pulse Oximetry 98 98 98 12/26/21 01:15 12/26/21 02:15 12/26/21 04:00 Temperature 97.9 F 98.0 F 98.4 F Pulse Rate 88 73 80 Respiratory Rate 18 18 18 Blood Pressure 122/65 127/64 127/66 Pulse Oximetry 99 98 100 12/26/21 08:00 12/26/21 08:02 Temperature 97.6 F Pulse Rate 75 80 Respiratory Rate 20 Blood Pressure 137/72 Pulse Oximetry 100 Intake/Output Intake/Output: Intake & Output 12/23/21 12/24/21 12/25/21 12/26/21 23:59 23:59 23:59 23:59 Intake Total 1999 1620 1620 710 Output Total 2350 2350 Balance 1999 -865 -869 000 Meds/Results Medications: Active Medications Generic Name Dose Route Start Last Admin Trade Name Freq PRN Reason Stop Dose Admin Metoprolol Succinate 25 mg 12/24/21 19:00 12/26/21 08:02 Metoprolol Succinate Ext Rel 25 Mg Tabcr PO 25 mg DAILY BOBBY Administration Multivitamins Therapeutic 1 tablet 12/25/21 09:00 12/26/21 08:02 Multivitamins Therapeutic Tab (*Bkc) PO 1 tablet DAILY BOBBY Administration Ondansetron HCl 4 mg 12/24/21 04:40 12/24/21 05:23 Ondansetron Inj 4 Mg/2 Ml Vial IV PUSH 4 mg Q4H PRN Administration Nausea And Vomiting Pantoprazole Sodium 40 mg 12/24/21 09:00 12/26/21 08:02 Pantoprazole Sodium Iv 40 Mg Vial IV PUSH 40 mg Q12HR BOBBY Administration Radiology Results: ITS Impressions Abdomen X-Ray 12/24/21 07:48 IMPRESSION: NG tube in stomach Upper Quadrant Ultrasound 12/24/21 07:51 IMPRESSION: The pancreas is obscured, not evaluated Hepatic steatosis
[2021-12-26 12:49] LABS: Hematocrit 25.1 % (42.0-52.0); Hemoglobin 8.3 g/dL (14.0-18.0)
== END 2021-12-26 14:00 | disposition home or self-care (01) | DRG 369 ==
LOC: ANHED 22:41 → ANHIMU 12-24 04:23 → ANH3MED 12-26 11:04 → ANHIMU 12-27 14:16
PROVIDERS: Internal Medicine; Internal Medicine Gastroenterology; Admitting Provider Internal Medicine; Emergency Provider Emergency Medicine; PCP Internal Medicine; Visit Provider Student in an Organized Health Care Education/Training Program
PROC: 0DJ08ZZ Inspection of Upper Intestinal Tract, Via Natural or Artificial Opening Endoscopic (ICD-10-PCS; CPT 43235; principal; 2021-12-24 10:45)
DX: K22.6 Gastro-esophageal laceration-hemorrhage syndrome (principal); D62 Acute posthemorrhagic anemia; R55 Syncope and collapse; Z87.891 Personal history of nicotine dependence; I25.10 Atherosclerotic heart disease of native coronary artery without angina pectoris; I10 Essential (primary) hypertension; K92.1 Melena; Z82.49 Family history of ischemic heart disease and other diseases of the circulatory system; Z79.899 Other long term (current) drug therapy; Z79.82 Long term (current) use of aspirin
CPT/HCPCS: 36415; 36430; 76705; 80048; 80053; 82140; 82948; 83690; 83735; 85014; 85018; 85025; 85027; 85610; 85730; 86850; 86900; 86901; 86920; 93005; 96361; 96374; 96375; 99285; A9270; C9113; J0171; J2370; J2405; J2704; J2765; J7030; J7050; J7120; P9016

== ENCOUNTER 2021-12-29 07:16 | Outpatient (CLI) | payer MEDICARE, SELFPAY ==
[2021-12-29 07:48] LABS: Basophils Percent Auto 0.3 % (0.2-1.2); Eosinophils Absolute Auto 0.4 K/mm3 (0-0.3); Eosinophils Percent Auto 4.9 % (0-4.4); Hemoglobin 8.5 g/dL (14.0-18.0); Immature Granulocyte Absolute 0.08 K/mm3 (0.00-0.031); Lymphocytes Absolute Auto 1.47 K/mm3 (0.9-3.2); Lymphocytes Percent Auto 18.4 % (18.3-44.2); Mean Corpuscular HGB Conc 32.7 g/dl (32-36); Mean Corpuscular Volume 97.7 fl (80-100); Mean Platelet Volume 10.8 fl (7.4-10.4); Monocytes Absolute Auto 0.8 K/mm3 (0.1-0.6); Monocytes Percent Auto 9.6 % (2.6-8.5); Neutrophils Absolute Auto 5.3 K/mm3 (1.3-6.7); Neutrophils Percent Auto 65.8 % (45.5-73.1); Platelet Count Result 234 k/mm3 (150-375); Red Blood Count 2.66 M/mm3 (4.6-6.20); Red Cell Distribution Width 14.7 % (11.5-14.5)
== END 2021-12-29 07:17 | disposition home or self-care (01) ==
LOC: ANHLAB 07:20
PROVIDERS: PCP Internal Medicine; Visit Provider Internal Medicine
DX: K92.1 Melena (principal)
CPT/HCPCS: 36415; 85025

== ENCOUNTER 2023-05-03 08:36 | Emergency (ER) | payer MEDICARE, SELFPAY ==
[2023-05-03 08:54] VITALS: BP 132/68; PULSE 96; RESP 20; TEMP 37; O2SAT 97
[2023-05-03 08:58] VITALS: BP 132/68; PULSE 96; RESP 20; TEMP 37; O2SAT 97
--- NOTE | 2023-05-03 09:00 | ED.URI ---
HPI - URI/Sore Throat General Chief Complaint: Upper Respiratory Infection Stated Complaint: head pressure,cough Time Seen by Provider: 05/03/23 09:02 Source: patient and RN notes reviewed Mode of arrival: ambulatory Limitations: no limitations History of Present Illness HPI Narrative: 72-year-old male with history of hypertension and CAD presented for complaint of headache, sinus pressure/congestion, cough, fever/chills. Onset yesterday morning. States he felt better for most of the day, then developed fever/chills with cough last night. Taking Nyquil and Tylenol. Reports feeling otherwise well today. Denies lethargy, sob, wheezing, n/v/d. States has similar symptoms. MD elicited complaint: cough Related Data Home Medications Medication Instructions Recorded Confirmed amlodipine 5 mg tablet 5 mg PO DAILY 11/30/21 05/03/23 aspirin 81 mg chewable tablet 81 mg PO DAILY 11/30/21 05/03/23 benazepril 10 mg tablet 10 mg PO DAILY 11/30/21 05/03/23 clopidogrel 75 mg tablet 75 mg PO DAILY 11/30/21 05/03/23 metoprolol succinate 25 mg 25 mg PO DAILY 11/30/21 05/03/23 tablet,extended release 24 hr multivitamin 1 tablet PO DAILY 11/30/21 05/03/23 Allergies Allergy/AdvReac Type Severity Reaction Status Date / Time Sulfa (Sulfonamide Allergy Unknown Hives Verified 05/03/23 08:53 Antibiotics) Review of Systems Review of Systems: CONSTITUTIONAL: Endorses chills, sweats, fever EYES: Denies visual changes, redness, or discharge ENT: Reports rhinorrhea, congestion, sinus pain, denies otalgia, sore throat CARDIOVASCULAR: Denies chest pain, palpitations, edema RESPIRATORY: Reports cough, post nasal drainage. Denies dyspnea GASTROINTESTINAL: Denies abdominal pain, nausea, vomiting, diarrhea SKIN: Denies rash or itching MUSCULOSKELETAL: Denies myalgia NEUROLOGIC: Reports headache PMFSH Past Medical History Medical History Adenomatous colon polyp Coronary artery disease Hematemesis Hypertension Bella-Borja tear Melena Surgical History Surgical History H/O knee surgery History of cardiac catheterization (~2006) He reports that he had a vessel that was not amendable to intervention and was managed conservatively with Plavix and aspirin he does not follow with a yoke presser History of lumbar surgery History of nasal septoplasty History of tonsillectomy History of total right knee replacement Family History Family History Father Heart attack Mother Hypertension Social History Social History Social History: He lives at home with his of 48 years. They have 2 children. He used to smoke half a pack per day for approximately 20 years but quit smoking over 30 years ago. He rarely drinks alcohol and only in small amounts. Denies illicit substance use. Code status: Full code Surrogate decision maker: Smoking packs per day: 0.5 Smoking cigarettes per day: 10.0 Years smoked: 20 Smoking pack-years: 10.00 Smoking status: Former smoker Tobacco type: cigarettes Alcohol intake: current Alcohol use details: 1 drink a year Substance use: never Spiritual care concerns: No Exam Narrative: GENERAL: mildly Ill-appearing, nontoxic no acute distress. HEAD: Normocephalic EYES: PERRLA, conjunctivae clear ENT: Mucous membranes moist. TMs pearly meek with dull light reflex bilaterally; no tragal tenderness. Oropharynx erythematous without lesions or exudate, no drooling, no hoarseness, no trismus, uvula midline. No tripod positioning, muffled voice, soft palate or pharyngeal wall bulging NECK: Supple. No lymphadenopathy CHEST: Clear to auscultation, SHANTEL posterior lobe with faint exp wheeze. breath sounds equal. No respiratory distress, speaks in full sentences. H
== END 2023-05-03 09:12 | disposition home or self-care (01) ==
PROVIDERS: Emergency Provider Nurse Practitioner Family; PCP Internal Medicine
DX: U07.1 COVID-19 (principal); Z87.891 Personal history of nicotine dependence; I25.10 Atherosclerotic heart disease of native coronary artery without angina pectoris; I10 Essential (primary) hypertension; Z96.651 Presence of right artificial knee joint; Z79.82 Long term (current) use of aspirin
CPT/HCPCS: 99213; G0463

== ENCOUNTER 2024-06-28 09:13 | Emergency (ER) | payer MEDICARE, SELFPAY ==
[2024-06-28 09:30] VITALS: BP 147/88; PULSE 95; RESP 16; TEMP 36.7; O2SAT 97
--- NOTE | 2024-06-28 10:08 | ED_ITS ---
HPI - URI/Sore Throat General Chief Complaint: Upper Respiratory Infection Stated Complaint: cough, sinus issue Time Seen by Provider: 06/28/24 10:08 Source: patient, RN notes reviewed and old records reviewed Mode of arrival: ambulatory Limitations: no limitations History of Present Illness HPI Narrative: Patient presents with complaints of 3 weeks of sinus pain and pressure. He reports that he has been taking Sudafed intermittently. Says that a few days ago he felt as though he was getting better, but now is feeling worse. He reports associated ear pain, postnasal drainage causing cough. He denies any fever. He does report intermittent headache. Denies any injury or trauma. Voices no other concerns or complaints at this time Related Data Home Medications Medication Instructions Recorded Confirmed amlodipine 5 mg tablet 5 mg PO DAILY 11/30/21 05/03/23 aspirin 81 mg chewable tablet 81 mg PO DAILY 11/30/21 05/03/23 benazepril 10 mg tablet 10 mg PO DAILY 11/30/21 05/03/23 clopidogrel 75 mg tablet 75 mg PO DAILY 11/30/21 05/03/23 metoprolol succinate 25 mg 25 mg PO DAILY 11/30/21 05/03/23 tablet,extended release 24 hr multivitamin 1 tablet PO DAILY 11/30/21 05/03/23 Allergies Allergy/AdvReac Type Severity Reaction Status Date / Time Sulfa (Sulfonamide Allergy Unknown Hives Verified 06/28/24 09:27 Antibiotics) Review of Systems Review of Systems: All systems reviewed & are unremarkable except as noted in HPI and below Constitutional: Constitutional: Reports as per HPI and Reports no additional constitutional complaints ENT: Reports system reviewed and no additional complaints, except as documented, Reports otalgia, Reports nasal congestion, Reports nasal discharge, Reports sinus pain, Reports sinus pressure and Reports sore throat Cardiovascular: Cardiovascular: Reports as per HPI and Reports no additional cardiovascular complaints Respiratory: Respiratory: Reports as per HPI, Reports no additional respiratory complaints and Reports cough Gastrointestinal: Gastrointestinal: Reports no additional gastrointestinal complaints PMFSH Past Medical History Medical History Adenomatous colon polyp Coronary artery disease Hematemesis Hypertension Bella-Borja tear Melena Surgical History Surgical History H/O knee surgery History of cardiac catheterization (~2006) He reports that he had a vessel that was not amendable to intervention and was managed conservatively with Plavix and aspirin he does not follow with a health analyst History of lumbar surgery History of nasal septoplasty History of tonsillectomy History of total right knee replacement Family History Family History Father Heart attack Mother Hypertension Social History Social History Social History: He lives at home with his of 48 years. They have 2 children. He used to smoke half a pack per day for approximately 20 years but quit smoking over 30 years ago. He rarely drinks alcohol and only in small amounts. Denies illicit substance use. Code status: Full code Surrogate decision maker: Smoking packs per day: 0.5 Smoking cigarettes per day: 10.0 Years smoked: 20 Smoking pack-years: 10.00 Smoking status: Former smoker Tobacco type: cigarettes Alcohol intake: current Alcohol use details: 1 drink a year Substance use: never Spiritual care concerns: No Comments At the time of my signature, I reviewed and agree with the nursing past medical, surgical, social, and family history. There is no relevant family history pertinent to the patient complaint. Exam Const: General: cooperative, no acute distress, alert and awake Orientation/consciousness: oriented to person, oriented to place and oriented to time HENMT: Head: normal to inspection Ears: TM abnormal erythematous bilateral Face and sinus: sinus tenderness frontal Mouth: Yes moist mucous membranes Throat: postnasal drainage Resp: Effort & Inspection: normal respiratory effort and able to speak in complete sentences Auscultation: clear to auscultation bilaterally, no crackles, no rales, no rhonchi and no wheezes Cardio: Palpation: normal PMI Rate: regular rate Rhythm: regular rhythm Heart sounds: S1 normal heart sound present and S2 normal heart sound present Neuro: General: oriented to person, oriented to place and oriented to time Cranial nerves: Yes CN's II-XII intact bilaterally Psych: Appearance: grossly normal Thought process: Normal thought process present Insight: Good insight present (Psych) Judgement: Good judgement present (Psych) Course Course Level of Care: Express Care Visit Vital Signs Vital signs: Vital Signs Temperature 98.0 F 06/28/24 09:30 Pulse Rate 95 06/28/24 09:30 Respiratory Rate 16 06/28/24 09:30 Blood Pressure 147/88 H 06/28/24 09:30 Pulse Oximetry 97 06/28/24 09:30 Oxygen Delivery Room Air 06/28/24 09:30 Temperature 98.0 F 06/28/24 09:30 Pulse Rate 95 06/28/24 09:30 Respiratory Rate 16 06/28/24 09:30 Blood Pressure 147/88 H 06/28/24 09:30 Pulse Oximetry 97 06/28/24 09:30 Oxygen Delivery Room Air 06/28/24 09:30 Reviewed MDM - URI/Sore Throat MDM Narrative Medical decision making narrative: Patient with 3 weeks of sinus pain and pressure, worsening. Was feeling better, now worse. Treat with doxycycline. Follow with primary care provider. Patient is nontoxic appearing, stable for discharge home on p.o. antibiotics. Discharge instructions reviewed with patient, as well as provided in writing per nursing staff. The instructions also include specific and strict return/GO TO THE ER as well as f/u information. All questions have been answered, and the patient deny any further questions with discharge and discharge plan. Some parts of this dictation were generated by voice recognition software and may contain typographical and/or grammatical inaccuracies. Differential Diagnosis Differential diagnosis: Likely upper respiratory infection, otitis media and sinusitis Medical Records Attestation: I reviewed the patient's medical records. Discharge Plan Discharge Clinical Impression: Sinusitis Qualifiers: Sinusitis location: frontal Chronicity: acute Recurrence: not specified as recurrent Qualified Code(s): J01.10 - Acute frontal sinusitis, unspecified Patient Disposition: Home, Self-Care Condition: Stable Instructions: Antibiotic Form, Sinusitis (ED) Additional Instructions: Take medications as prescribed, follow with primary care provider. Emergency department for new or worse symptoms Patient Language: Citizen Of [place] Prescriptions: New doxycycline hyclate 100 mg tablet 100 mg PO BID Qty: 14 0RF No Action clopidogrel 75 mg tablet 75 mg PO DAILY Hold Instructions: Hold for 2 weeks follow-up with GI in 1 week to re- evaluate amlodipine 5 mg tablet 5 mg PO DAILY metoprolol succinate 25 mg tablet extended release 24 hr 25 mg PO DAILY benazepril 10 mg tablet 10 mg PO DAILY multivitamin Tablet 1 tablet PO DAILY aspirin 81 mg Tablet,Chewable 81 mg PO DAILY Hold Instructions: Hold for 2 weeks follow-up with your health analyst in 1 week Follow-up with your GI specialist in 1 week Please call your health analyst and GI specialist when to be able to restart your aspirin and Plavix in 1 week thank you pantoprazole 40 mg tablet,delayed release (DR/EC) 40 mg PO BID 56 Days Qty: 112 0RF Follow-up/Referrals: Chanelle,Oli Perkins MD [Primary Care Provider] - 2 Weeks Time of Disposition: 10:26
== END 2024-06-28 10:28 | disposition home or self-care (01) ==
PROVIDERS: Emergency Provider Nurse Practitioner Family; PCP Internal Medicine
DX: J01.10 Acute frontal sinusitis, unspecified (principal); Z87.891 Personal history of nicotine dependence; I25.10 Atherosclerotic heart disease of native coronary artery without angina pectoris; I10 Essential (primary) hypertension; Z96.651 Presence of right artificial knee joint
CPT/HCPCS: 99213; G0463